=== PATIENT | male | born 1955 | race Caucasian/White ===

== ENCOUNTER → 2020-06-22 | Outpatient (CLI) | payer MEDICARE, OTHER | LOC: M.LAB 09:59 | PROVIDERS: ATTEND Surgery | DX: Z01.812 Encounter for preprocedural laboratory examination (principal); Z20.828 Contact with and (suspected) exposure to other viral communicable diseases; K40.90 Unilateral inguinal hernia, without obstruction or gangrene, not specified as recurrent ==

== ENCOUNTER → 2020-06-28 | Day surgery (SDC) | payer MEDICARE, OTHER ==
[~2020-06-28] MED LIST: CANDESARTAN CIL16 MG PO; FINASTERIDE5 MG PO; LATANOPROST 0.2.5 ML OPHTHALMIC; PERCOCET 5-3251 EACH PO
[2020-06-28 07:50] LABS: HEMATOCRIT 41.1 % (42.0-52.0); HEMOGLOBIN 14.1 gm/dL (14.0-18.0); MCH 30.5 pg (26.0-34.0); MCHC 34.4 g/dL (28.0-37.0); MCV 88.9 fL (80.0-100.0); MPV 8.4 fl. (7.2-11.1); RBC 4.62 mil/uL (4.50-6.00); RDW-CV 12.8 % (10.5-14.5)
[2020-06-28 07:55] LABS: CALCIUM 8.9 mg/dL (8.5-10.1); CREATININE 0.8 mg/dL (0.6-1.3); POTASSIUM 3.7 mmol/L (3.5-5.1)
--- NOTE | 2020-06-28 13:26 | EKG ---
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: : 1955 Requested By: Dominik Holbrook Order Number: [id number] Reading MD: Urmila Granados Measurements Intervals [place] Rate: 54 P: 75 CO: 260 QRS: 76 QRSD: 92 T: 70 QT: 410 QTc: 389 Interpretive Statements Sinus rhythm Prolonged CO interval Consider left ventricular hypertrophy No previous ECG available for comparison Electronically Signed On 06-28-2020 13:26:37 MOTOR EQUIPMENT CAPTAIN by Urmila Granados [email or web address] <ELECTRONICALLY SIGNED> By: Urmila Granados MD, [facility] 06/28/20 1326 0729 8 Urmila Granados MD, FACC /EPI
--- NOTE | 2020-07-03 14:12 | OP ---
[address] [address] OPERATIVE REPORT Name: URMILA MALDONADO Room: [facility]#: [id number] Admission: 06/28/20 Attend Phys: Dominik Holbrook DO Discharge: Date of : 53 Report #: [id number] THIS REPORT FOR: //name// cc: Brendon Escobar MD,Brendon JOHNSON ~ CC: Dominik Escobar DICTATED BY: Idris Devine DO DATE OF SERVICE: 06/28/2020 Idris Devine DO, PGY4, dictating for Dominik Holbrook DO PREOPERATIVE DIAGNOSIS: Right inguinal hernia. POSTOPERATIVE DIAGNOSIS: Right direct inguinal hernias. PRIMARY SURGEON: Dominik Holbrook DO CO-SURGEON: Idris Devine DO, PGY4 [employer]ODS CLERK: Herbert Lovell DO, MS4 OPERATION PERFORMED: Robotic-assisted laparoscopic right inguinal hernia repair with mesh. ANESTHESIA: Both general and regional TAP blocks. ESTIMATED BLOOD LOSS: 20 mL. SPECIMEN: None. COMPLICATIONS: None. IMPLANTS: Extra large Bard 3DMax hernia mesh, medium weight. INDICATIONS FOR PROCEDURE: The patient is a pleasant 65-year-old male, who presented to the office with a chief complaint of right groin pain and bulge. The patient was diagnosed with a right inguinal hernia and we recommended outpatient elective robotic-assisted laparoscopic inguinal hernia repair with mesh. Full discussion of the procedure, alternatives, risks, and possible complications were discussed, include but not limited to bleeding, infection, postoperative pain, scarring, hernia recurrence, conversion to open procedure, injury to other underlying abdominal organs, mainly bladder or bowel hernia, additionally on the left, anesthesia risks, cardiopulmonary arrest, even . [address] [address] OPERATIVE REPORT Name: URMILA MALDONADO Room: [facility]#: [id number] Admission: 06/28/20 Attend Phys: Dominik Holbrook DO Discharge: Date of : 53 Report #: [id number] The patient agreed to proceed and voiced understanding of risks. OPERATIVE TECHNIQUE: The patient was again seen and examined in the preoperative holding area. Fully informed written consent was obtained. The right groin was marked with a marking pen. Preoperative antibiotics, 2 g Ancef were given. The patient was then transported to the operating room suite and placed on the operating room table in a comfortable supine position. At this time, Anesthesia induced general anesthesia via endotracheal intubation. This was successful. SCDs were placed to bilateral lower extremity calves. Grounding pad was placed to the left lateral thigh. Safety strap and warm blankets were placed across the patient's lap. Arms were tucked at the patient's side with purple foam padding. The patient was on a pink mat, the antislip mat. Safety strap was also placed across the chest as well as an upper extremity Gwen Hugger. The patient was prepped and draped using standard sterile fashion. Time-out was performed prior to the onset of procedure. We began by making a vertical incision superior to the umbilicus using open Sarah technique. We dissected down to reach the level of the fascia. The fascia was scored with electrocautery and grasped with bilateral Kochers. The peritoneum was pierced with a hemostat. Two interrupted [id number] 0 Vicryl sutures were placed at the fascial apices. A 10-mm SI robotic trocar was placed into the abdomen. The abdomen was insufflated first using low flow, then high flow. A 30-degree robotic camera was placed into the abdomen. The abdomen was surveyed. There was noted to be a right direct inguinal hernia. An additional 8-mm robotic trocar was placed in the left mid abdomen and a second in the right mid abdomen. The robotic patient cart was docked at the patient's left side at the foot of the bed and all the arms were docked accordingly. Fenestrated bipolar was placed in the left arm and monopolar scissor was placed in the right. Once this was performed, Dr. Holbrook took position at the robotic console and began the dissection. The ASIS on the right was marked with electrocautery. From the median umbilical ligament laterally to the ASIS, the peritoneum was scored and transected using the monopolar scissors and a preperitoneal flap was made posterior to the transverse abdominis muscle extending caudally to the superior pubic ramus and then laterally to the external iliacs. The direct inguinal hernia was reduced. An extra large Bard 3DMax medium weight hernia mesh was opened on the back table and was placed into the abdomen using a locking wavy grasper as well as 2-0 dyed Vicryl suture and a 2-0 V-Loc. The mesh was placed into the preperitoneal flap and sutured in place using a 2-0 Vicryl at Pepito ligament and then medially and laterally to the epigastric vessels. Intraoperative pictures were obtained. Finally, the preperitoneal flap was closed using a 2-0 V-Loc in a running fashion. The intraabdominal pressure was dropped from 15 to 10 during this time. After this was performed, the abdominal pressure was then re-raised to15. Intraoperative pictures were final. The final closure was obtained. All needles were removed as were the robotic instruments. The robotic cart was undocked and the abdomen desufflated under direct visualization. Once the abdomen was fully desufflated, the trocars were removed and the fascia at the umbilical trocar site was closed with an [facility] [address] [place] [address] OPERATIVE REPORT Name: URMILA MALDONADO Room: [facility]#: [id number] Admission: 06/28/20 Attend Phys: Dominik Holbrook DO Discharge: Date of : 53 Report #: [id number] additional [id number] 0 Vicryl suture. The fascia was closed in layer. Layered closure was performed of the subcutaneous deep dermal layers using Vicryl and a running subcuticular 4-0 Monocryl was used to close the skin. The additional robotic trocar sites were closed using an interrupted subcuticular 4-0 Monocryl. The skin was then cleansed with wet and dry lap. Dermabond skin glue was applied for dressings. The patient tolerated the procedure well, was extubated in the OR and transferred to PACU in stable condition after brief recovery from anesthesia. PLAN: Discharged home. Follow up in the office with Dr. Holbrook in 1 week. <ELECTRONICALLY SIGNED> By: Dominik Holbrook DO 07/03/20 1412 1137 [id number] Holbrook DO /nt
== END | disposition home or self-care (01) ==
LOC: M.SUR 07:01
PROVIDERS: ATTEND Surgery
DX: K40.90 Unilateral inguinal hernia, without obstruction or gangrene, not specified as recurrent (principal); I10 Essential (primary) hypertension; Z79.899 Other long term (current) drug therapy; Z98.890 Other specified postprocedural states